=== PATIENT | male | born 1945 | race Caucasian/White ===

== ENCOUNTER 2020-02-04 13:41 | Day surgery (SDC) | payer OTHER ==
[2020-02-01 13:34] LABS: BASOPHILS # (AUTO) 0.1 X10'3 (0-0.2); BASOPHILS % (AUTO) 0.8 % (0-1); EOSINOPHILS # (AUTO) 0.4 X10'3 (0-0.9); EOSINOPHILS % (AUTO) 4.2 % (0-6); HEMATOCRIT 42.5 % (42.0-52.0); HEMOGLOBIN 14.2 g/dl (14.0-17.9); LYMPHOCYTES # (AUTO) 1.4 X10'3 (1.1-4.8); LYMPHOCYTES % (AUTO) 15.8 % (21-51); MEAN CORPUSCULAR HEMOGLOBIN 30.8 PG (27.0-31.0); MEAN CORPUSCULAR HGB CONC 33.4 g/dL (33.0-36.5); MEAN CORPUSCULAR VOLUME 92.2 FL (78-98); MEAN PLATELET VOLUME 9.2 FL (7.4-10.4); MONOCYTES # (AUTO) 0.8 X10'3 (0-0.9); NEUTROPHILS # (AUTO) 6.1 X10'3 (1.8-7.7); NEUTROPHILS % (AUTO) 70.2 % (42-75); PLATELET COUNT 192 X10'3 (140-440); RED BLOOD COUNT 4.61 X10'6 (4.70-6.10); WHITE BLOOD COUNT 8.8 X10'3 (4.5-11.0)
[2020-02-01 13:44] LABS: ALBUMIN 3.8 G/DL (3.4-5.0); ANION GAP 8 (8-16); BLOOD UREA NITROGEN 21 MG/DL (7-18); BUN/CREATININE RATIO 13.3 (5.4-32.0); CALCIUM 9.2 MG/DL (8.5-10.1); CHLORIDE 108 MMOL/L (99-107); CREATININE 1.58 MG/DL (0.60-1.10); GLUCOSE 87 MG/DL (70-104); POTASSIUM 4.4 MMOL/L (3.5-5.1); SODIUM 144 MMOL/L (135-145); TOTAL CARBON DIOXIDE 28.4 MMOL/L (24-32); eGFR 43 ML/MIN
[2020-02-01 13:47] LABS: PARTIAL THROMBOPLASTIN TIME 27 SECONDS (22-32)
[2020-02-04] VITALS (8 sets, daily range): BP systolic 120–133; BP diastolic 48–72
[~2020-02-04] VITALS: Ht 165.1 cm; Wt 90.7 kg
[2020-02-04] MEDS ORDERED: normal saline 1,000 ML IV SCH (14:00)
[2020-02-04] MEDS ORDERED: LORazepam 0.5 MG tablet PO PRN (14:00)
[2020-02-04] MEDS ORDERED: diphenhydrAMINE 25mg capsule PO PRN (14:00)
[2020-02-04] MEDS ORDERED: ROSU40TA PO (14:18)
[2020-02-04] MEDS ORDERED: ASPI-1265 PO (14:18)
[2020-02-04] MEDS ORDERED: EZET10TA6 PO (14:18)
[2020-02-04] MEDS ORDERED: CARB25TA PO (14:18)
[2020-02-04] MEDS ORDERED: AMLO-94 PO (14:18)
[2020-02-04] MEDS ORDERED: FLUO20CA39 PO (14:18)
[2020-02-04] MEDS ORDERED: NITR0.4T51 SL (14:18)
[2020-02-04] MEDS ORDERED: TRAZ-256 PO (14:18)
[2020-02-04] MEDS ORDERED: SYN0.088T PO (14:18)
[2020-02-04] MEDS ORDERED: LAMO150T6 PO (14:18)
[2020-02-04] MEDS ORDERED: LIDOcaine 1% (10mg/ml)w/preservative injection 20ml MDV ONE (16:00)
[2020-02-04] MEDS ORDERED: midazolam 2 mg/2 ml injection ONE (16:00)
[2020-02-04] MEDS ORDERED: iohexol 350MG/ML 100ml bottle IV ONE (16:00)
[2020-02-04] MEDS ORDERED: fentaNYL/PF 50MCG/1 ML 2ML syringe ONE (16:00)
[2020-02-04] MEDS ORDERED: iohexol 350 MG/ML 50ML vial IV ONE (16:36)
[2020-02-04] MEDS ORDERED: ondansetron/PF 4mg/2ml inj IV PRN (17:05)
[2020-02-04] MEDS ORDERED: HYDROcodone/acetaminophen 10/325mg tab PO PRN (17:10)
[2020-02-04] MEDS ORDERED: HYDROcodone/acetaminophen 5mg/325mg tablet PO PRN (17:10)
[2020-02-04] MEDS ORDERED: OXAZEpam 15mg capsule PO PRN (17:10)
[2020-02-04] MEDS ORDERED: acetaminophen 325mg tablet PO PRN (17:10)
[2020-02-04] MEDS ORDERED: proCHLORperazine 10 MG/2 ml inj IV PRN (17:10)
[2020-02-04] MEDS ORDERED: nitroGLYCERIN 0.4mg SUBLingual tab SL PRN (17:10)
--- NOTE | 2020-02-04 19:09 | NUR ---
Patient discharged at 7PM, however the wanted him to stay longer, patient is stable, vitals stable, hanging out until 8pm per 's request. Patient right groin site cdi, no hematoma, soft, nontender, pulses palpable both dorsalis pedis. Patient in bed waiting. Patient understands all discharge instructions and followup. Kavitha BACA taking over patient.
== END 2020-02-04 20:00 | disposition home or self-care (01) ==
LOC: SSTAY O 13:41
PROVIDERS: ATTEND Internal Medicine Interventional Cardiology
DX: R07.89 Other chest pain (principal); T82.858A Stenosis of other vascular prosthetic devices, implants and grafts, initial encounter; I25.10 Atherosclerotic heart disease of native coronary artery without angina pectoris; I25.82 Chronic total occlusion of coronary artery; E78.5 Hyperlipidemia, unspecified; E03.9 Hypothyroidism, unspecified; E11.22 Type 2 diabetes mellitus with diabetic chronic kidney disease; I12.9 Hypertensive chronic kidney disease with stage 1 through stage 4 chronic kidney disease, or unspecified chronic kidney disease; N18.9 Chronic kidney disease, unspecified; G20 Parkinson's disease; Z88.0 Allergy status to penicillin; I25.2 Old myocardial infarction; Z95.1 Presence of aortocoronary bypass graft; Z79.899 Other long term (current) drug therapy; Z79.82 Long term (current) use of aspirin; Y83.8 Other surgical procedures as the cause of abnormal reaction of the patient, or of later complication, without mention of misadventure at the time of the procedure; Y92.89 Other specified places as the place of occurrence of the external cause
CPT/HCPCS: 36415; 80048; 85025; 85610; 85730; 93459; 99152; C1760; C1769; C1894; J1644; J2001; J2250; J3010; J7030; Q0163; Q9967; 93458; 99153; A4620; A6258

== ENCOUNTER 2020-03-05 13:36 | Emergency (ER) | payer OTHER, MEDICARE ==
[~2020-03-05] VITALS: Ht 165.1 cm; Wt 85.9 kg
[~2020-03-05 13:36] MED LIST: AMLO-94 PO; ASPI-1265 PO; CARB25TA PO; EZET10TA6 PO; FLUO20CA39 PO; LAMO150T6 PO; NITR0.4T51 SL; ROSU40TA PO; SYN0.088T PO; TRAZ-256 PO
[2020-03-05 13:55] VITALS: BP 109/58
[2020-03-05] MEDS ORDERED: ipratropium/albuterol 3ml nebule NEB ONE (14:30)
[2020-03-05] MEDS ORDERED: dexamethasone 4mg tablet PO ONE (14:30)
[2020-03-05] MEDS ORDERED: ALBU18HF2 INH (15:08)
[2020-03-05] MEDS ORDERED: PRED20TA PO (15:08)
[2020-03-05] MEDS ORDERED: DOXY100C43 PO (15:08)
[2020-03-05 15:12] LABS: BASOPHILS # (AUTO) 0.1 X10'3 (0-0.2); BASOPHILS % (AUTO) 0.2 % (0-1); EOSINOPHILS # (AUTO) 0.1 X10'3 (0-0.9); EOSINOPHILS % (AUTO) 0.2 % (0-6); HEMOGLOBIN 13.6 g/dl (14.0-17.9); LYMPHOCYTES # (AUTO) 0.7 X10'3 (1.1-4.8); LYMPHOCYTES % (AUTO) 3.2 % (21-51); MEAN CORPUSCULAR HEMOGLOBIN 30.4 PG (27.0-31.0); MEAN CORPUSCULAR HGB CONC 33.2 g/dL (33.0-36.5); MEAN CORPUSCULAR VOLUME 91.6 FL (78-98); MEAN PLATELET VOLUME 8.9 FL (7.4-10.4); MONOCYTES # (AUTO) 1.2 X10'3 (0-0.9); MONOCYTES % (AUTO) 5.5 % (2-12); NEUTROPHILS % (AUTO) 90.9 % (42-75); PLATELET COUNT 192 X10'3 (140-440); RED BLOOD COUNT 4.48 X10'6 (4.70-6.10); RED CELL DISTRIBUTION WIDTH 12.8 % (11.5-14.5)
[2020-03-05] MEDS ORDERED: DOXYCYCLINE 100MG CAPSULE PO STA (15:23)
[2020-03-05 15:25] LABS: ALANINE AMINOTRANSFERASE 34 U/L (12-78); ALBUMIN 3.8 G/DL (3.4-5.0); ALKALINE PHOSPHATASE 58 IU/L (46-116); ANION GAP 12 (8-16); ASPARTATE AMINO TRANSFERASE 24 U/L (10-37); BILIRUBIN,TOTAL 0.5 MG/DL (0.1-1.0); BLOOD UREA NITROGEN 23 MG/DL (7-18); BUN/CREATININE RATIO 12.3 (5.4-32.0); CALCIUM 9.2 MG/DL (8.5-10.1); CHLORIDE 104 MMOL/L (99-107); CREATININE 1.87 MG/DL (0.60-1.10); GLUCOSE 121 MG/DL (70-104); POTASSIUM 4.7 MMOL/L (3.5-5.1); SODIUM 139 MMOL/L (135-145); TOTAL CARBON DIOXIDE 22.6 MMOL/L (24-32); TOTAL PROTEIN 7.5 G/DL (6.4-8.2); eGFR 35 ML/MIN
[2020-03-05] MEDS ORDERED: CefTRIAXone 250MG inj IM ONE (15:25)
[2020-03-05] MEDS ORDERED: CefTRIAXone 1000mg IM Kit (w/lidocaine diluent) IM ONE (15:40)
== END 2020-03-05 16:23 | disposition home or self-care (01) ==
LOC: ER 13:36
DX: J20.9 Acute bronchitis, unspecified (principal); R06.89 Other abnormalities of breathing; Z88.0 Allergy status to penicillin; Z79.82 Long term (current) use of aspirin; Z79.899 Other long term (current) drug therapy
CPT/HCPCS: 36415; 71045; 80053; 83880; 84145; 85025; 94640; 96372; 99284; J0696; 94760